=== PATIENT | female | born 1965 | race Caucasian/White ===

== ENCOUNTER 2025-02-19 09:53 | Emergency (ER) | payer OTHER, SELFPAY ==
--- NOTE | ~2025-02-19 | XR_ITS ---
EXAMINATION: XR FINGER, LEFT CLINICAL INFORMATION: staple in left thumb COMPARISON: None available. TECHNIQUE: PA hand and oblique and lateral views of the left thumb. FINDINGS: A metallic wire (staple) is seen projecting over the soft tissues of the lateral dorsal aspect of the thumb in the region of the proximal metadiaphysis. No fractures identified. Metallic foreign body projects over the bone on all 3 views. There is moderate narrowing, sclerosis, and marginal osteophytes involving the first carpal metacarpal joint. Small marginal osteophytes are evident involving the first metacarpal head. XR/XR finger LT min 2V IMPRESSION: Metallic foreign body without fracture projecting over the proximal metadiaphysis of the first proximal phalanx. Penetration into the bone is not ruled in or ruled out. 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 Electronically signed by: Major Dean MD 02/19/2025 10:29 AM EDT
[2025-02-19 09:59] VITALS: BP 162/100; PULSE 101; RESP 20; TEMP 37; O2SAT 98; BMI 17.9
--- NOTE | 2025-02-19 10:15 | ED.WOUNDLAC ---
HPI - Wound/Laceration General Chief Complaint: Wound/Laceration Stated Complaint: pin stuck in hand, sent from Time Seen by Provider: 02/19/25 10:08 Source: patient Mode of arrival: ambulatory Limitations: no limitations History of Present Illness ED Provider: VAMSI MCNALLY PA-C HPI narrative: 59 year old right hand dominant female presents to the ED today for evaluation of staple lodged in her left thumb. 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 Her hand slipped and the industrial staple when into her left thumb. She presented to who advised she come to the ED for further evaluation. Reports 6/10 pain to the left thumb, primarily with movement. Unknown tetanus status. Related Data Previous Rx's ?Medication ?Instructions ?Recorded amoxicillin 875 mg-potassium 1 tab PO BID 7 days #14 tabs 02/19/25 clavulanate 125 mg tablet Allergies Allergy/AdvReac Type Severity Reaction Status Date / Time No Known Allergies Allergy Verified 02/19/25 10:02 Review of Systems Review of Systems: Yes all other systems are reviewed and are negative [facility] Past Medical History Attestation statement: The following information was validated with the patient. Source: old records reviewed and nursing notes reviewed Physical Exam Vital Signs: Vital Signs: Last Vital Signs Temp 98 F 02/19/25 13:22 Pulse 101 H 02/19/25 13:22 Resp 18 02/19/25 13:22 BP 138/73 02/19/25 13:22 Pulse Ox 96 02/19/25 13:22 O2 Del Method Room Air 02/19/25 13:22 BMI result Body Mass Index 17.9 hypertensive General: Well appearing, in no acute distress. Skin: Warm, dry, intact. No rashes or lesions. Head: Normocephalic, atraumatic. EENT: Hearing is intact b/l. Conjunctiva clear. Sclera is anicteric. PERRLA. EOM intact. Moist mucous membranes.? Ext: +see photo of left thumb below. linear projectile inserting through the radial aspect of the left thumb between the 1st MCP and IP joints dorsally, appears through-through with small puncture wound to the ulnar aspect. no active bleeding. ROM limited with flexion and extension at the L first MCP, sensation intact, cap refill <2 seconds. +rings noted to left 2-4th digits with associated swelling. able to manually remove ring from 2nd digit after loosening it with lubricant. unable to move rings past 3rd-4th PIPs, requiring removal with ring cutter. Neuro: AOx3. Normal speech. Course Course Course Narrative: XR finger LT min 2V IMPRESSION: Metallic foreign body without fracture projecting over the proximal metadiaphysis of the first proximal phalanx. Penetration into the bone is not ruled in or ruled out. Spoke with ortho pa zachary - requesting I removed the FB at bedside. patient is agreeable. Patient provided verbal consent for ring removal (total 3) on digits 3-4 on left hand. Rings successfully removed w/ ring cutter. no complications. nv intact distally post removal. Digit block + FB removal performed w/ patient's consent. See procedure notes. staple successfully remove. there does not appear to be any bone involvement. dressing applied. tdap booster administered. will start patient on Augmentin and instruct her to f/u with hand surgery - referral provided. Patient has remained stable throughout ED visit today. Discussed worrisome signs and symptoms and when to return to the ED. All questions answered at this time. Patient is agreeable with disposition and stable for discharge. Medications Administered Discontinued Medications Generic Name Dose Route Start Last Admin Trade Name Freq PRN Reason Stop Dose Admin Diphtheria/Tetanus/Acell Pertussis 0.5 ml 02/19/25 10:58 02/19/25 11:07 Diphth,Pertus(Acell),Tet Adult 0.5 Ml Syringe IM 02/19/25 10:59 0.5 ml .ONCE ONE Administration Ketorolac Tromethamine 30 mg 02/19/25 10:52 02/19/25 11:07 Ketorolac Tromethamine 30 Mg/Ml Vial IM 02/19/25 10:53 30 mg ONCE ONE Administration Lidocaine HCl 10 ml 02/19/25 11:07 02/19/25 11:48 Lidocaine Hcl 1 % Mpf 5 Ml Vial INFILTRATI 02/19/25 11:08 10 ml ONCE ONE Administration Medical Decision Making Medical Decision Making MDM Narrative: 59 year old right hand dominant female presents to the ED today for evaluation of staple lodged in her left thumb. hypertensive. she is well appearing and in NAD. on exam, linear projectile inserting through the radial aspect of the left thumb between the 1st MCP and IP joints dorsally, appears through-through with small puncture wound to the ulnar aspect. no active bleeding. ROM limited with flexion and extension at the L first MCP, sensation intact, cap refill <2 seconds. +rings noted to left 2-4th digits with associated swelling. able to manually remove ring from 2nd digit after loosening it with lubricant. unable to move rings past 3rd-4th PIPs, requiring removal with ring cutter. Differential diagnosis includes FB, retained FB, fracture, ligament/tendon injury Plan for pain control, imaging, tdap booster, re-evaluation. Differential Diagnosis Differential Diagnoses: The differential diagnosis associated with the presentation includes as above Admission/Observation not indictaed Consult Healthcare Provider Management of the patient was discussed with: [employer] ortho ramandeep almodovar - recommending removal of FB at bedside after reviewing images. Independent Interpretation I performed an independent interpretation of an: Plain X-Ray Interpretation: xr showing fb insertion at L thumb Radiology Impression Discussion of test interpretation with radiology: I have reviewed the radiologist's reading. Radiologist Impression: Procedure(s): XR finger LT min 2V Accession Number(s): [id number] cc: Sushil Jordan MD; Norma Lawler MD~ Reason for Exam: staple in left thumb EXAMINATION: XR FINGER, LEFT CLINICAL INFORMATION: staple in left thumb COMPARISON: None available. TECHNIQUE: PA hand and oblique and lateral views of the left thumb. FINDINGS: A metallic wire (staple) is seen projecting over the soft tissues of the lateral dorsal aspect of the thumb in the region of the proximal metadiaphysis. No fractures identified. Metallic foreign body projects over the bone on all 3 views. There is moderate narrowing, sclerosis, and marginal osteophytes involving the first carpal metacarpal joint. Small marginal osteophytes are evident involving the first metacarpal head. XR/XR finger LT min 2V IMPRESSION: Metallic foreign body without fracture projecting over the proximal metadiaphysis of the first proximal phalanx. Penetration into the bone is not ruled in or ruled out. 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 Electronically signed by: Major Dean MD 02/19/2025 10:29 AM EDT External Record Review External record reviewed: Inpatient record Prescription Management I considered prescription management with: Pain Medication and Antibiotic Social Determinants Patient?s care significantly limited by Social Determinants of Health including: Other Social Determinant of Health Procedures Procedure Narrative Procedure Narrative: FB removal (staple) - L thumb cleansed w/ saline and idodine 10 ml 1% lido used for digit block removed with forceps + counter traction patient tolerated procedure well complications: none Nerve Block Nerve Block 1: Time out performed: Yes Local Anesthetic: lidocaine 1% Amount of anesthesia used (mL): 10 Side: left Nerve Blocks: digital Procedure Successful: Yes Patient Tolerated Procedure: well Complications: none Critical Care Time Critical Care Time Critical Care Time: No Discharge Plan Discharge Clinical Impression: Foreign body hand Patient Disposition: Home, Self-Care Instructions: Amoxicillin/Clavulanate Potassium (By mouth) Additional Instructions: You were evaluated in the ED today for a staple in your left thumb. Unfortunately, we had to cut 3 of your rings off of your left hand due to the swelling. You provided your consent for this. This was removed in the ED. You tolerated this procedure well. Your tetanus was updated today and will be valid for 10 years. I am starting you on an antibiotic, Augmentin. On Augmentin, softer bowel movements are to be expected. Call your provider if you move your bowels more than 4 times a day, your bowel movements are almost all liquid, or you get a rash.? I have provided you with a referral to [facility] had surgery, Dr. Olson. Call them for follow up. Return with any new or worsening symptoms. In the case of an emergency, call 911. I have also provided you with contact information to our work connection as this was a work-related injury. Call them for follow up. Prescriptions: New amoxicillin-pot clavulanate 875-125 mg tablet 1 tab PO BID 7 Days Qty: 14 0RF Referrals: [facility] [Outside] Fe Olson MD [Physician, Hand Surgery] Norma Lawler MD [Primary Care Provider, Family Practice] Stand Alone Forms: Work/School Release Interventions: ED Discharge Assessment Last Done: 02/19/25 13:22 Discharge Date/Time: 02/19/25 13:23 Print Language: Samoan
[2025-02-19] MEDS: Diphth,Pertus(ACell),Tet Adult 0.5 ML SYRINGE IM (11:07)
[2025-02-19 11:46] VITALS: BP 138/73; PULSE 101; RESP 18; O2SAT 96
[2025-02-19] MEDS: Lidocaine HCl 1 % MPF 5 ML VIAL 10 ML INFILTRATI (11:48)
--- OUTSIDE RECORDS SUMMARY | 2025-02-19 12:42 | XMS_ITS | Encounter Summary ---
Author Organization [facility] Address [address] [place], [place] [id number] Phone Care Team Providers Care Scoreboard Operator Name Role Phone Norma Lawler MD Primary Care Provider [phone]- [phone] Norma Lawler MD Primary Care Provider [phone]- [phone] Encounter Details Date Type Department Care Team (Late st Contact Info) Description 08/27/2018 Procedure Pass [facility], [address] [address] Social History Tobacco Use Types Packs/Day Years Used Date Smoking Tobacco: Every Day Smokeless Tobacco: Never Alcohol Use Standard Drinks/Week Comments Yes 0 (1 standard drink = 0.6 oz pur e alcohol) Comments Unknown Sex and Gender Information Value Date Recorded Sex Assigned at Not on file Legal Sex Female 9:40 PM EDT Gender Identity Not on file Sexual Orientation Not on file documented as of this encounter Plan of Treatment Not on file documented as of this encounter Visit Diagnoses Not on filedocumented in this encounter Additional Health Concerns Infection Onset Date Last Indicated Resolved Time CoV-Risk Comment:Referred for COVID-19 testing 08/21/2019 08/21/2019 09/04/2019 1:23 AM E DT CoV-Risk 07/09/2020 07/09/2020 07/19/2020 1:24 AM EDT documented as of this encounter Care Teams Scoreboard Operator Relationship Specialty Start Date End Date Norma Lawler MD PCP - General Family Medicine 05/02/18 03/06/24 Norma Lawler MD [address] [place] [address] [email or web address] PCP - General Family Medicine 03/07/24 documented as of this encounter Additional Source Comments The information contained in this document represents components of the legal health record. It is not the complete legal health record.[facility]
--- OUTSIDE RECORDS SUMMARY | 2025-02-19 12:42 | XMS_ITS | Encounter Summary ---
Author Organization [facility] Address [address] [place] [address] Phone Care Team Providers Care Bag Repairer Name Role Phone Norma Lawler MD Primary Care Provider [phone] Norma Lawler MD Primary Care Provider [phone] Encounter Details Date Type Department Care Team (Late st Contact Info) Description 07/13/2020 Ancillary Orders [facility],Outside Imaging [address] [place] [address] System, Provider Not In, [facility] [address] [address] Social History Tobacco Use Types Packs/Day Years [...] on file documented as of this encounter Results * Mammogram Outside (No Interpretation) (03/05/2018 12:00 AM EST) Narrative SYSTEMGENERATED, DOCUMENTATION - 07/13/2020 4:05 PM EDT This study is for PACS storage only and not for interpretation. us Provider Not In System PhD IMG OUTSIDE IMAGING W /OUT INTERPRETATION Final Result * Mammogram Outside (No Interpretation) (02/16/2016 12:00 AM EDT) Narrative SYSTEMGENERATED, DOCUMENTATION - 07/13/2020 4:05 PM EDT This study is for PACS storage only and not for interpretation. us Provider Not In System PhD IMG OUTSIDE IMAGING W /OUT INTERPRETATION Final Result * Mammogram Outside (No Interpretation) (02/16/2015 12:00 AM EDT) Narrative SYSTEMGENERATED, DOCUMENTATION - 07/13/2020 4:06 PM EDT This study is for PACS storage only and not for interpretation. us Provider Not In System PhD IMG OUTSIDE IMAGING W /OUT INTERPRETATION Final Result * Mammogram Outside (No Interpretation) (01/15/2014 12:05 AM EDT) Narrative SYSTEMGENERATED, DOCUMENTATION - 07/13/2020 4:04 PM EDT This study is for PACS storage only and not for interpretation. us Provider Not In System PhD IMG OUTSIDE IMAGING W /OUT INTERPRETATION Final Result * US Breast Outside (No Interpretation) (01/15/2014 12:00 AM EDT) Narrative SYSTEMGENERATED, DOCUMENTATION - 07/13/2020 4:03 PM EDT This study is for PACS storage only and not for interpretation. us Provider Not In System PhD IMG OUTSIDE IMAGING W /OUT INTERPRETATION Final Result * Mammogram Outside (No Interpretation) (01/13/2014 12:00 AM EDT) Narrative SYSTEMGENERATED, DOCUMENTATION - 07/13/2020 4:04 PM EDT This study is for PACS storage only and not for interpretation. us Provider Not In System PhD IMG OUTSIDE IMAGING W /OUT INTERPRETATION Final Result documented in this encounter Visit Diagnoses Not on filedocumented in this encounter Additional Health Concerns Infection Onset Date Last Indicated Resolved Time CoV-Risk 07/09/2020 07/09/2020 07/19/2020 1:24 AM EDT documented as of this encounter Care Teams Bag Repairer Relationship Specialty Start Date End Date Norma Lawler MD [email or web address] PCP - General Family Medicine 05/02/18 03/06/24 Norma Lawler MD [address] [place] [address] [email or web address] PCP - General Family Medicine 03/07/24 documented as of this encounter Additional Source Comments The information contained in this document represents components of the legal health record. It is not the complete legal health record.[facility]
--- OUTSIDE RECORDS SUMMARY | 2025-02-19 12:42 | XMS_ITS | Encounter Summary ---
Author Organization [facility] Address [address] [place] [address] [place] [address] Phone Care Team Providers Care Pediatric Physician Name Role Phone Norma Lawler MD Primary Care Provider [phone] Norma Lawler MD Primary Care Provider [phone] Encounter Details Date Type Department Care Team (Late st Contact Info) Description 07/09/2020 Transcribe Orders Virtual Department [address] [place] [address] Sabina Barrios MD [address] [place] [address] [email or web address] Vomiting, intractability of vomiting not specified, presence of nausea not specified, unspecified vomiting type (Primary Dx) Social History Tobacco Use Types Packs/Day Years [...] documented as of this encounter Results * COVID-19 PCR Order (07/09/2020 2:40 PM EDT) COVID Testing Status Specimen received in analyzing lab. Results should be available within 24 to 48 hrs. [facility] Symptomatic? YES [facility] 07/09/2020 2:40 PM EDT 07/09/2020 4:41 PM EDT Sabina Araujo MD BODY FLUIDS AND ST OOLS ORDERABLES Final Result [facility] [address] [place] [address] [facility] [address] [place] [id number] documented in this encounter Visit Diagnoses Diagnosis Vomiting, intractability of vomiting not specified, presence of nausea not specified, unspecified vomiting type- Primary documented in this encounter Additional Health Concerns Infection Onset Date Last Indicated Resolved Time CoV-Risk 07/09/2020 07/09/2020 07/19/2020 1:24 AM EDT documented as of this encounter Care Teams Pediatric Physician Relationship Specialty Start Date End Date Norma Lawler MD PCP - General Family Medicine 05/02/18 03/06/24 Norma Lawler MD [address] [place] [address] PCP - General Family Medicine 03/07/24 documented as of this encounter Additional Source Comments The information contained in this document represents components of the legal health record. It is not the complete legal health record.[facility]
--- OUTSIDE RECORDS SUMMARY | 2025-02-19 12:42 | XMS_ITS | Encounter Summary ---
Author Organization [facility] Address [address] [facility] [address] [place] [address] Phone Care Team Providers Care Log Haul Operator Name Role Phone Norma Lawler MD Primary Care Provider [phone] Encounter Details Date Type Department Care Team (Late st Contact Info) Description 03/13/2024 Prep for Surgery [facility] General Surgical Care [address] [place] [address] Adilia Gomez MD [address] [facility], 2nd [place] [address] [email or web address] Anal polyp (Primary Dx) Social History Tobacco Use Types Packs/Day Years Used Date Smoking Tobacco: Every Day Cigarettes Smokeless Tobacco: Never Alcohol Use Standard Drinks/Week Comments Yes 6 (1 standard drink = 0.6 oz pur e alcohol) 6-8 per week Education Answer Date Recorded Are you interested in more education? Not on jimmy e 08/19/2022 Are you concerned about learning? Not on file 08/19/2022 No 08/19/2022 No 08/19/2022 Digital Access Answer Date Recorded No 09/17/2022 No 09/17/2022 Reliable internet access at home? Not on file 09/17/2022 Device with a working camera? Not on file Intimate Partner Violence Answer Date R ecorded Are you denied basic needs s uch as food, clothing, or medical care? No 01/16/2024 In the past 12 months have y ou been in a relationship with a person who hurts, threatens, or tries to control you? No 01/16/2024 Are you denied basic needs s uch as food, clothing, or medical care? No 01/16/2024 In the past 12 months have y ou been in a relationship with a person who hurts, threatens, or tries to control you? No 01/16/2024 Comments No Sex and Gender Information Value Date Recorded Sex Assigned at Not on file Legal Sex Female 9:40 PM EDT Gender Identity Not on file Sexual Orientation Not on file documented as of this encounter Plan of Treatment Not on file documented as of this encounter Visit Diagnoses Diagnosis Anal polyp- Primary Anal and rectal polyp documented in this encounter Care Teams Log Haul Operator Relationship Specialty Start Date End Date Norma Lawler MD [address] [place] [address] [email or web address] PCP - General Family Medicine 03/07/24 documented as of this encounter Additional Source Comments The information contained in this document represents components of the legal health record. It is not the complete legal health record.[facility]
--- OUTSIDE RECORDS SUMMARY | 2025-02-19 12:42 | XMS_ITS | Encounter Summary ---
Author Organization [facility] Address [address] [place] [address] Phone Care Team Providers Care Stringed Instrument Assembler Name Role Phone Norma Lawler MD Primary Care Provider [phone] Norma Lawler MD Primary Care Provider [phone] Encounter Details Date Type Department Care Team (Late st Contact Info) Description 01/16/2024 Procedure Pass [facility] Endoscopy Admitting Dept Virtual Department [address] [place] [address] Social History Tobacco Use Types Packs/Day Years [...] Diagnoses Not on filedocumented in this encounter Care Teams Stringed Instrument Assembler Relationship Specialty Start Date End Date Norma Lawler MD [email or web address] PCP - General Family Medicine 05/02/18 03/06/24 Norma Lawler MD [address] [place] [id number] PCP - General Family Medicine 03/07/24 documented as of this encounter Additional Source Comments The information contained in this document represents components of the legal health record. It is not the complete legal health record.[facility]
--- OUTSIDE RECORDS SUMMARY | 2025-02-19 12:43 | XMS_ITS | Encounter Summary ---
Author Organization [facility] Address [address] [place] [address] Phone Care Team Providers Care Box Lidder Name Role Phone Norma Lawler MD Primary Care Provider [phone] Encounter Details Date Type Department Care Team (Late st Contact Info) Description 05/06/2024 Procedure Pass [place] Admitting Dept - Virtual Department [address] [place] [address] Social History Tobacco Use Types Packs/Day Years [...] on filedocumented in this encounter Care Teams Box Lidder Relationship Specialty Start Date End Date Norma Lawler MD [address] [place] [address] [email or web address] PCP - General Family Medicine 03/07/24 documented as of this encounter Additional Source Comments The information contained in this document represents components of the legal health record. It is not the complete legal health record.[facility]
--- OUTSIDE RECORDS SUMMARY | 2025-02-19 12:43 | XMS_ITS | Clinical Summary ---
Author Organization [facility] Address [address] [place], [place] [id number] Phone Care Team Providers Care Life Science Research Assistant Name Role Phone Norma Lawler MD Primary Care Provider [phone] Allergies Active Allergy Reactions Criticality Noted Date Comments Sertraline Feeling Irritable Low 03/07/2024 Medications fluticasone propionate (FLONASE) 50 mcg/actuation nasal spray 0 04/18/2018 Active traZODone (DESYREL) 50 MG tablet TAKE 1 TO 2 TABLETS BY MOUTH AT BEDTIME IF NEEDED FOR SLEEP 0 05/14/2018 Active amitriptyline (ELAVIL) 50 MG tablet 0 05/22/2018 Active levothyroxine (SYNTHROID,LEVO THROID) 25 MCG tablet Take 25 mcg by mouth every morning. Active escitalopram oxalate (LEXAPRO) 10 MG tablet Take 10 mg by mouth daily. Active propranoloL (INDERAL LA) 80 mg 24 hr capsule Take 80 mg by mouth daily. Active acetaminophen (TYLENOL) 650 MG CR tablet Take 650 mg by mouth every 8 (eight) hours as needed for pain (specific location in comments). Active albuterol 90 mcg/actuation inhaler Inhale 2 puffs into the lungs every 6 (six) hours as needed for wheezing. Active ibuprofen (ADVIL,MOTRIN) 200 MG tablet Take 2 tablets (400 mg total) by mouth every 6 (six) hours as needed for pain (specific location in comments). 05/06/2024 Active senna (SENOKOT) 8.6 mg tablet Take 1 tablet by mouth 2 (two) times a day. 05/06/2024 Active docusate sodium (COLACE) 100 MG capsule Take 1 capsule (100 mg total) by mouth 2 (two) times a day. 05/06/2024 Active Active Problems Problem Noted Date Diagnosed Date Anal polyp 03/11/2024 Tobacco use 03/11/2024 Immunizations Immunization Administration Dates Next Due INFLUENZA, SPLIT VIRUS, TRIVALENT PF 01/15/2017, 01/10/2016,01/25/2015 INFLUENZA, SPLIT VIRUS, TRIV ALENT W/ PRESERVATIVE IM 01/05/2014,12/30/2012,01/21/2010,01/07 Influenza Quadrivalent MDCK Preservative Free IM 01/14/2023,01/18/2019 Influenza Quadrivalent Prese rvative Free IM 01/10/2022,01/23/2021,01/05/2020,01/14 Influenza Quadrivalent w/ Pr eservative IM 01/18/2019 Influenza, Unspecified Formulation 02/26/2011 Pneumococcal polysaccharide PPSV23 01/25/2016 Td (adult), not adsorbed 04/24/2006 Tdap 11/06/2014 Social History Tobacco Use Types Packs/Day Years Used Date Smoking Tobacco: Every Day Cigarettes Smokeless Tobacco: Never Tobacco Cessation:Ready to Q uit: Not Asked; Counseling Given: Not Answered Alcohol Use Standard Drinks/Week Comments Yes 6 [...] on file Sexual Orientation Not on file Last Filed Vital Signs Vital Sign Reading Time Taken Comments Blood Pressure 170/78 05/06/2024 11:25 AM EST Pulse 70 05/06/2024 10:51 AM EST Temperature 36.3 C (97.3 F) 05/06/2024 11:26 AM EST Respiratory Rate 15 05/06/2024 10:51 AM EST Oxygen Saturation 96% 05/06/2024 11:26 AM EST Inhaled Oxygen Concentration - - Weight 54.9 kg (121 lb) 04/29/2024 3:07 PM EST Height 162.6 cm (5' 4 ) 04/29/2024 3:07 PM EST Body Mass Index 20.77 04/29/2024 3:07 PM EST Plan of Treatment Health Maintenance Due Date Last Done Comments LIPID PANEL 1965 TSH LEVEL 1965 DEPRESSION SCREENING 1977 SMOKING Hx and SMOKELESS TOBACCO SCREENING 1978 HEPATITIS C SCREENING 12/15/1983 HIV ONE-TIME SCREENING (18-65 YEARS) 12/15/1983 COLOGUARD 2010 FIT TEST 2010 FOBT 2010 SIGMOIDOSCOPY 2010 VIRTUAL COLONOSCOPY 2010 PNEUMOCOCCAL VACCINES (50+ years) (2 of 2 - PCV) 01/24/2017 01/25/2016 MAMMOGRAM 03/05/2020 03/05/2018, 01/23, 02/16/2015, Additional history exists PAP SMEAR 02/26/2022 02/26/2019 Adult Td,Tdap Booster 11/06/2024 11/06/2014, 007 INFLUENZA VACCINE (#1) 2024 , 01/14/2023, 01/10/2022, Additional history exists COVID-19 VACCINE ( - season) 2024 04/12/2021, 08/13/2020, 07/23/2020 COLONOSCOPY 01/15/2034 01/16/2024 COLORECTAL CANCER SCREENING 01/15/2034 RSV VACCINE (1 - 1-dose 75+ series) 2040 ZOSTER VACCINES Completed 03/28/2024, 01/20/2024 HEPATITIS A VACCINES Aged Out No long er eligible based on patient's age to complete this topic HIB VACCINES Aged Out No longer eligi ble based on patient's age to complete this topic MENINGOCOCCAL VACCINES (ACWY) Aged Out No longer eligible based on patient's age to complete this topic MENINGOCOCCAL VACCINES (B) Aged Out N o longer eligible based on patient's age to complete this topic Medical Devices Not on file Procedures Procedure Name Priority Date/Time Associated Diagnosis Comments ENDOSCOPY, COLON 01/16/2024 12:1 3 PM EDT PAP TEST Routine 02/26/2019 12:00 AM EST BI MAMMOGRAM OUTSIDE (NO INTERPRETATION) Routine 03/05/2018 12:00 AM EST from Last 3 Months or Most Recently Relevant to Health Maintenance Results * ENDOSCOPY, COLON (01/16/2024 12:13 PM EDT) Narrative Transcriptions Ant Lewis MD - 01/16/2024 12:13 PM EDT [facility] Patient Name: Hoda Rivas Attending MD:: ANT LEWIS MD, , Procedure Date: 01/16/2024 12:13 PM Date of : 1965 Age: 58 Admit Type: Outpatient Gender: Female Room: [facility] Referring MD: Norma Lawler MD Exam Type: Colonoscopy Indications: Change in bowel habits Medications: Monitored Anesthesia Care Procedure: Informed consent was obtained from the patientafter discussion of the indications, limitations, alternatives, benefits, and risks of the procedure. Risks specifically discussed include but are not limited to medication reactions, missed lesions, bleeding, perforation, or the need for emergent surgery. Throughout the procedure, the patient's blood pressure, pulse, end-tidal CO2, and oxygensaturations were monitored continuously. The Colonoscope was introduced through the anus and advanced to the cecum, identified by appendiceal orifice and ileocecal valve. The colonoscopy was performed without difficulty. The patient tolerated the procedure well. The quality of the bowel preparation was excellent. The quality of the bowel preparation was evaluated using the BBPS (BostonBowel Preparation Scale) with scores of: Right Colon = 3, Transverse Colon = 3 and Left Colon = 3 (entiremucosa seen well with no residual staining, smallfragments of stool or opaque liquid). The total BBPS score equals 9. Anatomical landmarks were photographed. Complications: No immediate complications. Estimated blood loss: Minimal. Findings: The perianal and digital rectal examinations were normal. A 2 mm polyp was found in the rectum. The polyp was sessile. The polyp was removed with a cold biopsy forceps. Resection and retrieval were complete. A 5 mm polyp was found in the anus. The polyp was sessile. Polypectomy was not attempted. Internal hemorrhoids were found duringretroflexion. The hemorrhoids were mild. The exam was otherwise normal throughout theexamined colon. Impression: - One 2 mm polyp in the rectum, removed with a cold biopsy forceps. Resected and retrieved. - One 5 mm polyp at the anus. Resection notattempted due to location. - Internal hemorrhoids. Recommendation: - Discharge patient to home. - Await pathology results. - Refer to a surgeon at appointment to be scheduledto evaluate anal polyp. ANT LEWIS MD, 01/16/2024 12:45:19 PM This report has been signed electronically. Number of Addenda: 0 Note Initiated On: 01/16/2024 12:13 PM Procedure Code(s): --- Professional --- 78280, Colonoscopy, flexible; with biopsy, single or multiple --- Technical --- 17308, Colonoscopy, flexible; with biopsy, single or multiple Diagnosis Code(s): --- Professional --- D12.8, Benign neoplasm of rectum K62.0, Anal polyp K64.8, Other hemorrhoids R19.4, Change in bowel habit --- Technical --- D12.8, Benign neoplasm of rectum K62.0, Anal polyp K64.8, Other hemorrhoids R19.4, Change in bowel habit CPT copyright 2021 [employer]. All rights reserved. The codes documented in this report are preliminary and upon engineering lecturer reviewmay be revised to meet current compliance requirements. Procedure Date: 01/16/2024 12:13:[address] [place] [address] Norma Lawler MD GI PROCEDURE ORDERABLES Fin al Result * Pap Smear (02/26/2019 12:00 AM EST) 02/26/2019 02/27/2019 12: 45 PM EST Narrative SEE NARRATIVE - 03/08/2019 7:56 AM EST [address] [address] Dehydration Unit Operator: Hoda Koroma MD [employer]IVER [employer] WORKER Cytology Report FINAL DIAGNOSIS A. PAP SMEAR (SUREPATH) CE: SPECIMEN ADEQUACY: Satisfactory for evaluation; transformation zone present. INTERPRETATION: NEGATIVE FOR INTRAEPITHELIAL LESION OR MALIGNANCY. Fungal organisms morphologically consistent with Leslie species. Electronically Signed Out By: Harriett YEH(ASCP) The Pap test is a screening test primarily for squamous cancers and precursors and has associated false-negative and false-positive results. New technologies such as liquid-based preparations may decrease but will not eliminate all false-negative results. Regular sampling and follow-up of unexplained clinical signs and symptoms are recommended to minimize false negative results. PROCEDURES/ADDENDA HPV Testing (Requested) Ordered Date: 02/27/2019 A. PAP SMEAR (SUREPATH) CE: Human Papilloma Virus Test Negative for high-risk human papillomavirus types 16, 18, 45 and the Other high risk probe set (Includes 31, 33, 35, 39, 51, 52, 56, 58, 59, 66, 68) by [employer] Onclarity HR-HPV analysis. Clinical correlation is advised. This HPV test was performed at [facility], [address] [place] [address]. This test has been FDA approved for SurePath cervical cytology specimens. The accuracy and precision of this test for all other specimen sources has been verified in the Cytopathology Laboratory of the [facility] and has not been cleared or approved by the U.S. Food and Drug Administration. Clinical correlation is advised. CLINICAL HISTORY Date of Last Menstrual Period: Not Provided Menstrual History: No LMP given Other Clinical Conditions: Screening Pap SPECIMEN SOURCE A: PAP SMEAR (SUREPATH) CE Patient Name: SUSANCEEAMELIA LOYAA : 1965 (Age: 53) Sex: F Institution: [facility] Location: [facility] Date of Collection: 02/26/2019 Date of Reported: 03/08/2019 07:56 Results to: Norma Lawler MD us Norma Lawler MD CYTOLOGY ORDERABLES Final R esult SEE NARRATIVE * Mammogram Outside (No Interpretation) (03/05/2018 12:00 AM EST) Narrative SYSTEMGENERATED, DOCUMENTATION - 07/13/2020 4:05 PM EDT This study is for PACS storage only and not for interpretation. us Provider Not In System PhD IMG OUTSIDE IMAGING W /OUT INTERPRETATION Final Result from Last 3 Months or Most Recently Relevant to Health Maintenance Insurance HMO O O O O O O HMO Member Subscriber Plan / Payer (Ef fective 2014-Present) Name:Hoda Rivas Relation to Subscriber:Self Name:Hoda Rivas Payer ID:Not on file Type:HMO Address: [place] [id number] HMO Advance Directives For more information, please contact: [phone] (9AM - 5PM [facility], Monday-Monday) * Full Code (Latest Code Status on File) Date Activated Date Inactivated Comments 05/06/2024 7:23 AM Question Answer Comments Code Status Confirmed With: Patient Care Teams Life Science Research Assistant Relationship Specialty Start Date End Date Norma Lawler MD [address] [place], [place] [address] PCP - General Family Medicine 03/07/24 Additional Source Comments The information contained in this document represents components of the legal health record. It is not the complete legal health record.[facility]
[2025-02-19 13:22] VITALS: BP 138/73; PULSE 101; RESP 18; TEMP 36.6; O2SAT 96
== END 2025-02-19 13:23 | disposition home or self-care (01) ==
PROVIDERS: Emergency Provider Emergency Medicine; PCP Family Medicine
DX: S61.042A Puncture wound with foreign body of left thumb without damage to nail, initial encounter (principal); W45.8XXA Other foreign body or object entering through skin, initial encounter; Y93.89 Activity, other specified; Y92.89 Other specified places as the place of occurrence of the external cause; Y99.0 Civilian activity done for income or pay
CPT/HCPCS: 10120; 73140; 90471; 90715; 96372; 99284; J1885; J2003

== ENCOUNTER → 2025-02-19 10:15 | Outpatient (BNV) | payer OTHER, SELFPAY | PROVIDERS: Emergency Provider Emergency Medicine; PCP Family Medicine; Visit Provider Radiology Diagnostic Radiology | DX: M18.12 Unilateral primary osteoarthritis of first carpometacarpal joint, left hand (principal) | CPT/HCPCS: 73140 ==